=== PATIENT | female | born 1970 | race Caucasian/White ===

== ENCOUNTER 2020-10-27 10:28 | Outpatient (RCR) | payer MEDICARE, SELFPAY | END 2020-11-14 23:59 | disposition home or self-care (01) | LOC: SPT 10:28 | PROVIDERS: Family Provider Nurse Practitioner; PCP Physician Assistant Medical; Referring Provider Physician Assistant; Visit Provider Physician Assistant | DX: Z98.1 Arthrodesis status (principal) | CPT/HCPCS: 97161 ==

== ENCOUNTER 2020-11-15 06:00 | Outpatient (RCR) | payer MEDICARE, SELFPAY | END 2020-12-15 23:59 | disposition home or self-care (01) | LOC: SPT 06:00 | PROVIDERS: PCP Physician Assistant Medical; Referring Provider Physician Assistant; Visit Provider Physician Assistant | DX: Z98.1 Arthrodesis status (principal) | CPT/HCPCS: 97110 ==